=== PATIENT | male | born 1930 | race Caucasian/White ===

== ENCOUNTER 2018-08-18 09:29 | Observation (INO) ==
--- NOTE | 2018-08-18 10:15 | ERNOTE ---
Medical Problem HPI - Narrative Date of Service: 08/18/18 - General Chief Complaint: Nausea/Vomiting Time Seen by Provider: 08/18/18 10:14 Source: patient Exam Limitations: no limitations - Immun/Allergies/Home Medications Immunizations: IMMUNIZATION HX Immunizations Up to Date Yes Allergies/Adverse Reactions: Allergies No Known Allergies Allergy (Verified 08/18/18 10:08) Home Medications: HOME MEDICATIONS Acetaminophen [Tylenol] 500 mg PO QID PRN 03/18/14 [Last Taken Unknown] Amlodipine Besylate [Norvasc] 2.5 mg PO DAILY 03/18/14 [Last Taken Unknown] Amox Tr/Potassium Clavulanate [Augmentin 500-125 Tablet] 500 mg PO BID 03/18/14 [Last Taken Unknown] Aspirin [Aspirin Chewable] 81 mg PO DAILY 03/18/14 [Last Taken Unknown] Carvedilol [Coreg] 3.125 mg PO BID 03/18/14 [Last Taken Unknown] Cholecalciferol (Vitamin D3) [Vitamin D3] 2,000 unit PO DAILY 03/18/14 [Last Taken Unknown] [place]-3 Fatty Acids [[place]-3] 1,000 mg PO DAILY 03/18/14 [Last Taken Unknown] Pravastatin Sodium [Pravachol] 20 mg PO DAILY 03/18/14 [Last Taken Unknown] Ubidecarenone [Co Q-10] 200 mg PO DAILY 03/18/14 [Last Taken Unknown] - Pain Score Pain Score #1 Pain Score: 5 - History of Present History Narrative: The patient is a 87 year old male who presents for diffuse abdominal tenderness and diarrhea which has been ongoing for 2 weeks with worsening symptoms since Sunday. There are associated symptoms of nausea and fatigue. The patient reports generalized abdominal pain, 5/10. There are no alleviating factors. There are no aggravating factors. Previous treatments have included: none. The past medical history includes: HTN, HLD and prostate ca. The social history is negative. The patient has had no known ill contacts. Patient reports having 3 bowel movements daily, denies blood in stool. Review of Systems - Review of Systems Constitutional: Present: chills, fatigue. Absent: fever EYE: Present: no symptoms reported ENT: Present: no symptoms reported. Absent: ear pain, nasal drainage, sore throat Respiratory: Present: shortness of breath, cough Cardiology: Present: no symptoms reported. Absent: chest pain Gastrointestinal/Abdominal: Present: nausea, diarrhea, abdominal pain, eating less, drinking less. Absent: vomiting Genitourinary: Present: decreased urinary output. Absent: dysuria Musculoskeletal: Present: no symptoms reported Skin: Present: no symptoms reported. Absent: rash Neurological: Present: weakness All Other Systems: All systems neg except as marked Medical History (Updated 08/18/18 @ 16:36 by JUANITA Tijerina) Hx of hyperlipidemia Hx of primary hypertension Hx of prostatic malignancy Surgical History: Surgical History (Updated 08/18/18 @ 10:10 by Kassandra uQispe RN) Hx of carotid angioplasty Hx of heart artery stent Hx of hernia repair Family History: Family History (Updated 08/18/18 @ 10:10 by Kassandra Quispe RN) Other No pertinent family history Social History: Preferred Language British Do you have any jainism or No cultural preference? Smoking Status Never smoker Alcohol Use none No Social History Section defined Physical Exam - Physical Exam General Appearance: Present: wd/wn, alert, mild distress, other - sickly appeara nce Head Exam: Present: normal inspection Eye Exam: Normal inspection: bilateral Neck: Present: normal inspection Respiratory: Present: no respiratory distress, normal breath sounds, no accessory muscle use, lungs clear Cardiovascular/Chest: Present: regular rate, rhythm, systolic murmur Peripheral Pulses: N=norm/S=strong/W=weak/B=bound/A=absent: Radial (L): Normal Gastrointestinal/Abdominal: Present: nondistended, soft, no organomegaly, tenderness - diffuse, moderate, abnormal bowel sounds - hyperactive Extremity Exam: Present: no edema Neurological Exam: Present: alert, oriented, normal mood/affect, no motor/sensory deficits Skin Exam: Present: normal color, warm/dry Progress - Date and Time Seen: Date and Time: 08/18/18 17:16 Case was discussed with prior to admission. also notified of CDiff results when available. notified of EKG result, unsure if patient has had abnormal rhythm in the past but is not currently taking anti-arrhythmic but rate is controlled. - Results and Orders Patient's Lab Results:: I have reviewed the patient's lab results. - Vital Signs Patient's Vital Signs:: I have reviewed the patient's vital signs. Vital Signs: Vital Signs 08/18/18 10:05 Temperature 36.2 C Pulse Rate 51 L Respiratory Rate 15 O2 Sat by Pulse Oximetry 98 - EKG EKG #1 EKG: atrial flutter - rate 73 EKG read: Reviewed by me - X-Ray X-Ray #1 X-Ray: chest Interpretation: Reviewed by me X-ray Comments: IMPRESSION: 1. HYPERINFLATION. 2. NO ACUTE CARDIOPULMONARY PROCESS. Electronically signed by Ramiro Vallejo M.D.. X-Ray #2 X-Ray: abdomen Interpretation: Reviewed by me X-ray Comments: IMPRESSION: 1. NONSPECIFIC BOWEL GAS PATTERN Electronically signed by Ramiro Vallejo M.D.. - Progress/Reassessment Chief Complaint: Nausea/Vomiting Progress:: Improved Departure Clinical Impression: Infectious colitis, Dehydration, Bandemia, Clostridium difficile diarrhea Atrial flutter Qualifiers: Atrial flutter type: unspecified Qualified Code(s): I48.92 - Unspecified atrial flutter - Departure Disposition: Still a patient Condition: Good
[2018-08-18 10:56] LABS: Urine Color Amber
[2018-08-18 10:58] LABS: Urine Appearance Slightly Cloudy (CLEAR); Urine Bilirubin 1 mg/dl (NEGATIVE); Urine Blood 150 /ul (NEGATIVE); Urine Ketone Negative (NEGATIVE)
[2018-08-18 10:59] LABS: Urine Bacteria 1+; Urine Nitrite Negative (NEGATIVE); Urine Protein 100 mg/dL (NEGATIVE); Urine RBC 0-5 /hpf (0-5); Urine Urobilinogen Normal (NORMAL); Urine WBC 0-5 /hpf (0-5); Urine pH 5.5 pH (5.0-7.0)
[2018-08-18 11:00] LABS: Urine Coarse Granular Cast 0-5 /LPF; Urine Fine Granular Cast 0-5 /LPF; Urine Hyaline Cast 0-5 /LPF
[2018-08-18 11:03] LABS: Hematocrit 45.3 % (42.0-52.0); Hemoglobin 15.6 gm/dL (13.5-18.0); Mean Cell Volume 94.6 fl (78-100); Mean Corpuscular Hemoglobin 32.6 pg (27-31); Mean Corpuscular Hgb Conc 34.4 g/dl (32-36); Mean Platelet Volume 11.3 fl (8-11.3); Platelet Count 235 K/mm3 (150-450); Red Blood Count 4.79 M/mm3 (4.7-6.0); Red Cell Distribution Width 12.1 % (11.5-14.0); White Blood Count 21.9 K/mm3 (4.0-10.5)
[2018-08-18 11:05] LABS: Total Cells Counted 100
[2018-08-18] MEDS ORDERED: NORMAL SALINE 500 ML IV ONE (11:12)
[2018-08-18 11:15] LABS: Albumin * 3.3 gm/dl (3.4-5.0); Anion Gap 12.9 mmol/L (6.8-13.8); BUN/Creatinine Ratio 20.6 (9.0-21.6); Bilirubin, Total 0.7 mg/dL (0.0-1.1); Ca. Corrected For Albumin 9.1 mg/dL (8.4-10.2); Calcium * 8.9 mg/dL (7.9-10.9); Carbon Dioxide 28.1 mmol/L (24-32.6); Total Protein 7.4 gm/dL (6.2-8.2)
[2018-08-18 11:42] LABS: Band 30 % (0-2.0); Lymphocyte 6 % (20-51); Monocyte 6 % (0-9); Neutrophil 58 % (42-75); Neutrophil # 12.7 K/mm3 (1.3-6.0); Platelet Estimate Normal (NORMAL); RBC Morphology Normal (NORMAL)
[2018-08-18] MEDS ORDERED: DIATRIZOATE MEGLUMINE, SODIUM 30 ML BTL PO ONE (12:01)
[2018-08-18] MEDS ORDERED: ONDANSETRON HCL/PF 2 MG/ML VIAL IV ONE (12:05)
[2018-08-18] MEDS ORDERED: PIPERACILLIN SODIUM/TAZOBACTAM 3.375 GM in DEXTROSE 5 % IN WATER 100 ML IV ONE ×2 (15:56)
[2018-08-18] MEDS ORDERED: metroNIDAZOLE/SODIUM CHLORIDE 500 MG/100 ML BAG IV SCH ×2 (16:00→19:00)
[2018-08-18] MEDS ORDERED: ACETAMINOPHEN 325 MG TABLET PO PRN (18:44)
[2018-08-18] MEDS: NORMAL SALINE 1,000 ML IV PRN (19:25)
[2018-08-18] MEDS: LACTOBACILLUS ACIDOPHILUS 1 EACH CAPSULE PO SCH (19:26)
[2018-08-18] MEDS ORDERED: SIMVASTATIN 10 MG TABLET PO SCH (19:30)
--- NOTE | 2018-08-18 19:48 | HP ---
Chief Complaint - Chief Complaint Date of Service: 08/18/18 Time of Service: 19:35 Chief Complaint: I have had diarrhea and weakness for over 3 days History of Present Illness: 87-year-old male with past medical history of hyperlipidemia, hypertension, prostate cancer, was seen in our ER due to persistent nonbloody diarrhea accompanied by generalized weakness for over 3 days. Patient was recently treated for suspected pneumonia with p.o. antibiotics by his PCP, specifically Augmentin. He reports that his cough improved and fevers resolved, however he started having abdominal discomfort accompanied by multiple episodes of nonbloody watery diarrhea and loose stools. Patient reports at least 3 episodes of diarrhea per day since the illness started. Labs upon admission demonstrated WBCs of 21 and bands count of 30. Patient's GFR is also found to be below normal but his baseline GFR is unknown. C. difficile study came back positive for infection with C. difficile, therefore patient was given a a dose of metronidazole in the ER and will be treated with subsequent doses of p.o. metronidazole to treat his C. difficile infection. Augmentin has been continued. Medical History (Updated 08/18/18 @ 17:16 by JUANITA Tijerina) Hx of hyperlipidemia Hx of primary hypertension Hx of prostatic malignancy Surgical History: Surgical History (Updated 08/18/18 @ 10:10 by Kassandra Quispe RN) Hx of carotid angioplasty Hx of heart artery stent Hx of hernia repair Family History: Family History (Updated 08/18/18 @ 10:10 by Kassandra Quispe RN) Other No pertinent family history Social History: Patient Lives/Resources with son Utilized Preferred Language Bengali Do you have any amish or Yes: [facility] cultural preference? Smoking Status Never smoker Have you smoked in the past 12 No months Alcohol Use none No Social History Section defined Peds Patient Hx - Developmental: No Pertinent Hx Peds Patient Hx - Medical: No Pertinent Hx Peds Patient Hx - Cardiac/Respiratory: No Pertinent Hx Peds Patient Hx - Surgical: No Surgical History Patient History - Cancer: No Hx of Cancer Review Of Systems (GEN) - Review of Systems Generalized/Overall Review: Present: Weakness, Chills, Fever EENTM: Present: No Symptoms Reported Respiratory: Present: Cough Cardiac: Present: No Symptoms Reported Abdominal: Present: Nausea, Abdominal Pain, Diarrhea Genitourinary: Present: No Symptoms Reported Musculoskeletal: Present: No Symptoms Reported Neurological: Present: No Symptoms Reported Skin: Present: No Symptoms Reported Endocrine: Present: No Symptoms Reported Immunizations: IMMUNIZATION HX Immunizations Up to Date Yes Allergies/Adverse Reactions: Allergies Allergy/AdvReac Type Severity Reaction Status Date / Time No Known Allergies Allergy Verified 08/18/18 17:18 Home Medications: HOME MEDICATIONS Acetaminophen [Tylenol] 500 mg PO QID PRN 03/18/14 [Last Taken Unknown] Amlodipine Besylate [Norvasc] 2.5 mg PO DAILY 03/18/14 [Last Taken Unknown] Amox Tr/Potassium Clavulanate [Augmentin 500-125 Tablet] 500 mg PO BID 03/18/14 [Last Taken Unknown] Aspirin [Aspirin Chewable] 81 mg PO DAILY 03/18/14 [Last Taken Unknown] Carvedilol [Coreg] 3.125 mg PO BID 03/18/14 [Last Taken Unknown] Cholecalciferol (Vitamin D3) [Vitamin D3] 2,000 unit PO DAILY 03/18/14 [Last Taken Unknown] [place]-3 Fatty Acids [[place]-3] 1,000 mg PO DAILY 03/18/14 [Last Taken Unknown] Pravastatin Sodium [Pravachol] 20 mg PO DAILY 03/18/14 [Last Taken Unknown] Ubidecarenone [Co Q-10] 200 mg PO DAILY 03/18/14 [Last Taken Unknown] Exam - Exam Vital Signs: Vital Signs - Last Taken Temp 36.9 C 08/18/18 17:20 Pulse 73 08/18/18 17:20 Resp 14 08/18/18 17:20 BP 126/64 08/18/18 17:20 Pulse Ox 99 08/18/18 17:20 Constitutional: Present: Alert, Oriented x3, Cooperative, Well developed, Well nourished, No distress ENT Exam: Present: normal ENT inspection, hearing grossly normal, pharynx normal, TMs normal Eye Exam: bilateral eye: normal inspection, PERRL, EOMI Neck: Present: non-tender, full range of motion, supple, normal inspection, trachea midline Back Exam: Present: normal inspection, no CVA tenderness, no vertebral tenderness Breasts: Present: Exam deferred Respiratory: Present: chest non-tender Cardiovascular/Chest: Present: normal peripheral pulses, regular rate, rhythm, no chest tenderness, no edema, no gallop, no JVD, no murmur, no rub Peripheral Pulses: carotid (R): 3+, carotid (L): 3+, femoral (R): 3+, femoral (L): 3+, dorsalis-pedis (R): 3+, dorsalis-pedis (L): 3+ Abdomen: Present: Normal bowel sounds, soft, nondistended, no rebound tenderness, no hepatospenomegaly, no masses, tender - Mild tenderness in lower quadrants /Rectal: Present: Exam deferred Extremity: Present: normal range of motion, non-tender, normal inspection, no pedal edema, no calf tenderness, normal capillary refill Skin Exam: Present: normal color, warm/dry, no cyanosis Lymphatic: Present: no adenopathy Neurologic: Present: quill machine tender II-XII nml as tested, normal cerebellar test, no motor/sensory deficits, alert, normal mood/affect, oriented x 3 Appearance: Present: appropriate appearance, appropriate insight, neat, no memory impairment Eye contact: Present: cooperative, good eye contact, normal speech Thoughts: Present: normal thought pattern, no apparent hallucination Diagnostic Studies: Abnormal Lab Results 08/18/18 08/18/18 08/18/18 Range/Units 10:37 10:55 10:55 WBC 21.9 H (4.0-10.5) K/mm3 MCH 32.6 H (27-31) pg Band Neuts % (Manual) 30 H (0-2.0) % Lymphocytes % (Manual) 6 L (20-51) % Neutrophils # (Manual) 12.7 H (1.3-6.0) K/mm3 Lymphocytes # (Manual) 1.3 L (1.5-3.5) k/mm3 Monocytes # (Manual) 1.3 H (0.0-1.0) k/mm3 Chloride 96 L (97-106) mmol/L BUN 34 H (6-23) mg/dL Creatinine 1.65 H (0.4-1.4) mg/dL Est GFR (Non-Af Amer) 42 L D (60-130) mL/min Albumin 3.3 L (3.4-5.0) gm/dl Urine Protein 100 H (NEGATIVE) mg/dL Urine Blood 150 H (NEGATIVE) /ul Urine Bilirubin 1 H (NEGATIVE) mg/dl Urine Ictotest Positive H (NEGATIVE) Prot Sulfosalicylic Acd 4+ H (0) mg/dL Urine Bacteria 1+ H (NONE) Hyaline Casts 0-5 H (NONE) /LPF Fine Granular Casts 0-5 H (NONE) /LPF Coarse Granular Casts 0-5 H (NONE) /LPF Stl C.difficile Tox A&B (Negative) 08/18/18 Range/Units 15:10 WBC (4.0-10.5) K/mm3 MCH (27-31) pg Band Neuts % (Manual) (0-2.0) % Lymphocytes % (Manual) (20-51) % Neutrophils # (Manual) (1.3-6.0) K/mm3 Lymphocytes # (Manual) (1.5-3.5) k/mm3 Monocytes # (Manual) (0.0-1.0) k/mm3 Chloride (97-106) mmol/L BUN (6-23) mg/dL Creatinine (0.4-1.4) mg/dL Est GFR (Non-Af Amer) (60-130) mL/min Albumin (3.4-5.0) gm/dl Urine Protein (NEGATIVE) mg/dL Urine Blood (NEGATIVE) /ul Urine Bilirubin (NEGATIVE) mg/dl Urine Ictotest (NEGATIVE) Prot Sulfosalicylic Acd (0) mg/dL Urine Bacteria (NONE) Hyaline Casts (NONE) /LPF Fine Granular Casts (NONE) /LPF Coarse Granular Casts (NONE) /LPF Stl C.difficile Tox A&B Positive H (Negative) Laboratory Results WBC 21.9 K/mm3 (4.0-10.5) H 08/18/18 10:55 RBC 4.79 M/mm3 (4.7-6.0) 08/18/18 10:55 Hgb 15.6 gm/dL (13.5-18.0) 08/18/18 10:55 Hct 45.3 % (42.0-52.0) 08/18/18 10:55 MCV 94.6 fl (78-100) 08/18/18 10:55 MCH 32.6 pg (27-31) H 08/18/18 10:55 MCHC 34.4 g/dl (32-36) 08/18/18 10:55 RDW 12.1 % (11.5-14.0) 08/18/18 10:55 Plt Count 235 K/mm3 (150-450) 08/18/18 10:55 MPV 11.3 fl (8-11.3) 08/18/18 10:55 58 % (42-75) 08/18/18 10:55 Band Neuts % (Manual) 30 % (0-2.0) H 08/18/18 10:55 6 % (20-51) L 08/18/18 10:55 6 % (0-9) 08/18/18 10:55 12.7 K/mm3 (1.3-6.0) H 08/18/18 10:55 1.3 k/mm3 (1.5-3.5) L 08/18/18 10:55 1.3 k/mm3 (0.0-1.0) H 08/18/18 10:55 Normal (NORMAL) 08/18/18 10:55 RBC Morphology Normal (NORMAL) 08/18/18 10:55 Sodium 133 mmol/L (132-142) 08/18/18 10:55 133 mmol/L (130-142) 08/18/18 10:55 Potassium 4.0 mmol/L (3.4-4.6) 08/18/18 10:55 Chloride 96 mmol/L (97-106) L 08/18/18 10:55 Carbon Dioxide 28.1 mmol/L (24-32.6) 08/18/18 10:55 12.9 mmol/L (6.8-13.8) 08/18/18 10:55 BUN 34 mg/dL (6-23) H 08/18/18 10:55 1.65 mg/dL (0.4-1.4) H 08/18/18 10:55 Est GFR (Non-Af Amer) 42 mL/min (60-130) L D 08/18/18 10:55 20.6 (9.0-21.6) 08/18/18 10:55 106 mg/dL (70-110) 08/18/18 10:55 1.6 mmol/L (0.4-2.0) 08/18/18 10:55 Calcium 8.9 mg/dL (7.9-10.9) 08/18/18 10:55 Calcium Adj for Albumin 9.1 mg/dL (8.4-10.2) 08/18/18 10:55 Magnesium 2.2 mg/dL (1.2-2.8) 08/18/18 10:55 0.7 mg/dL (0.0-1.1) 08/18/18 10:55 AST 27 U/L (0-48) 08/18/18 10:55 ALT 26 U/L (19-67) 08/18/18 10:55 67 U/L (50-170) 08/18/18 10:55 7.4 gm/dL (6.2-8.2) 08/18/18 10:55 3.3 gm/dl (3.4-5.0) L 08/18/18 10:55 Amylase 53 U/L (25-115) 08/18/18 10:55 173 U/L (73-393) 08/18/18 10:55 Magy 08/18/18 10:37 Slightly cloudy (CLEAR) 08/18/18 10:37 5.5 pH (5.0-7.0) 08/18/18 10:37 Ur Specific [place] 1.030 SP.GR. (1.005-1.030) 08/18/18 10:37 100 mg/dL (NEGATIVE) H 08/18/18 10:37 Negative mg/dL (NEGATIVE) 08/18/18 10:37 Negative mg/dL (NEGATIVE) 08/18/18 10:37 150 /ul (NEGATIVE) H 08/18/18 10:37 Negative (NEGATIVE) 08/18/18 10:37 1 mg/dl (NEGATIVE) H 08/18/18 10:37 Positive (NEGATIVE) H 08/18/18 10:37 Prot Sulfosalicylic Acd 4+ mg/dL (0) H 08/18/18 10:37 Normal EU/dl (NORMAL) 08/18/18 10:37 Ur Leukocyte Esterase Negative /ul (NEGATIVE) 08/18/18 10:37 0-5 /hpf (0-5) 08/18/18 10:37 0-5 /hpf (0-5) 08/18/18 10:37 Ur Epithelial Cells None seen /hpf (0-5) 08/18/18 10:37 1+ (NONE) H 08/18/18 10:37 Hyaline Casts 0-5 /LPF (NONE) H 08/18/18 10:37 Fine Granular Casts 0-5 /LPF (NONE) H 08/18/18 10:37 Coarse Granular Casts 0-5 /LPF (NONE) H 08/18/18 10:37 No culture indicated 08/18/18 10:37 Stl C.difficile Tox A&B Positive (Negative) H 08/18/18 15:10 Assessment/Plan - Narrative Narrative: Patient was evaluated and medical chart was reviewed and decision to admit with diagnosis of C. difficile colitis, moderate dehydration, intractable diarrhea, was taken. Patient will be treated with oral antibiotics specifically metronidazole to treat the infection with C. difficile and he will also be treated with IV hydration to treat his dehydration. Currently patient's only complaint is mild tenderness upon palpation of his abdomen specifically in the lower quadrants but he denies any nausea and has not had diarrhea since arriving on the floor. Augmentin was discontinued since it is a suspected culprit of the C. difficile infection. Patient was found to have a new onset atrial flutter on EKG while in the ER which was confirmed with a second EKG when he arrived on the floor however he denies any chest pain, troponins are negative, and his heart rate is adequately controlled. He denies history of cardiac arrhythmia or ever being told that he had an abnormal heart rhythm, however patient did report having 2 stents inserted due to coronary artery disease several years ago. We will continue to monitor him with telemetry and treat accordingly. - Assessment/Plan (1) Atrial flutter Problem: Acute Qualifiers: Atrial flutter type: unspecified Qualified Code(s): I48.92 - Unspecified atrial flutter (2) Clostridium difficile diarrhea Problem: Acute (3) Colitis due to Clostridium difficile Problem: Acute (4) Moderate dehydration Problem: Acute (5) Bandemia Problem: Acute
[2018-08-18] MEDS ORDERED: SIMVASTATIN 20 MG TABLET ONE (20:42)
[2018-08-18] MEDS: CARVEDILOL 3.125 MG TABLET PO SCH (20:51)
[2018-08-18] MEDS: FAMOTIDINE 20 MG TABLET PO SCH (20:52)
[2018-08-18] MEDS: ENOXAPARIN SODIUM 30 MG/0.3 ML SYRG SC SCH (20:53)
[2018-08-19] MEDS: metroNIDAZOLE 500 MG TABLET PO SCH ×2 (00:34→08:42)
[2018-08-19] MEDS: NORMAL SALINE 1,000 ML IV PRN ×3 (03:28→19:14)
[2018-08-19] MEDS: Co Q-10 200 MG PO SCH (08:42)
[2018-08-19] MEDS: amLODIPine BESYLATE 5 MG TABLET PO SCH (08:42)
[2018-08-19] MEDS: CHOLECALCIFEROL 1,000 UNIT CAPSULE PO SCH (08:42)
[2018-08-19] MEDS: LACTOBACILLUS ACIDOPHILUS 1 EACH CAPSULE PO SCH ×3 (08:42→16:33)
[2018-08-19] MEDS: FAMOTIDINE 20 MG TABLET PO SCH ×2 (08:43→20:27)
[2018-08-19] MEDS: ASPIRIN 81 MG TAB.CHEW PO SCH (08:43)
[2018-08-19] MEDS: CARVEDILOL 3.125 MG TABLET PO SCH ×2 (08:43→16:33)
[2018-08-19] MEDS: OMEGA-3 FATTY ACIDS 1 CAP CAPSULE PO SCH (08:43)
[2018-08-19 10:49] LABS: Hematocrit 40.9 % (42.0-52.0); Hemoglobin 13.9 gm/dL (13.5-18.0); Mean Cell Volume 96.5 fl (78-100); Mean Corpuscular Hemoglobin 32.8 pg (27-31); Mean Platelet Volume 11.6 fl (8-11.3); Neutrophil # 16.2 K/mm3 (1.3-6.0); Neutrophil % 87.4 % (42-75.0); Platelet Count 226 K/mm3 (150-450); Red Blood Count 4.24 M/mm3 (4.7-6.0); Red Cell Distribution Width 12.5 % (11.5-14.0); White Blood Count 18.6 K/mm3 (4.0-10.5)
[2018-08-19 10:58] LABS: Albumin * 2.6 gm/dl (3.4-5.0); Bilirubin, Total 0.4 mg/dL (0.0-1.1); Calcium * 8.2 mg/dL (7.9-10.9); Carbon Dioxide 26.5 mmol/L (24-32.6); Potassium 3.5 mmol/L (3.4-4.6)
[2018-08-19] MEDS: VANCOMYCIN HCL 50 MG/ML BTL PO SCH ×3 (11:19→23:17)
--- NOTE | 2018-08-19 11:25 | PN ---
Subjective - Date and Time Seen Date: 08/19/18 Time: 11:20 Subjective Narrative: I have not had diarrhea since yesterday evening but I am shaft tender in the right lower quadrant Objective Objective Narrative: 88-year-old male admitted for colitis due to Clostridium difficile was evaluated at bedside and was found to be afebrile and in no acute distress. Patient reports feeling better compared to when he got here and denies recurrence of diarrhea since the last episode that occurred yesterday evening. However, during bedside evaluation he was still found to have mild tenderness on palpation of the right lower quadrant. Patient is being treated with p.o. antibiotics specifically p.o. Vanco for his C. difficile infection. This morning's labs demonstrate an improvement in his leukocytosis and renal functi on. We will reevaluate him tomorrow morning and repeat labs for a reevaluation of his condition. - Review of Systems Generalized/Overall Review: Reports: No Symptoms Reported EENTM: Reports: No Symptoms Reported Respiratory: Reports: No Symptoms Reported Cardiac: Reports: No Symptoms Reported Abdominal: Reports: No Symptoms Reported Genitourinary Symptoms: Reports: No Symptoms Reported Musculoskeletal Complaints: Reports: No Symptoms Reported Neurological: Reports: No Symptoms Reported Skin: Reports: No Symptoms Reported Endocrine: Reports: No Symptoms Reported - Vitals Vitals: Last Vital Signs Temp 36.7 C 08/19/18 10:34 Pulse 64 08/19/18 10:34 Resp 20 08/19/18 10:34 BP 128/95 H 08/19/18 10:34 Pulse Ox 99 08/19/18 10:34 - Abnormal Lab Findings Abnormal Lab Findings: Abnormal Lab Results 08/18/18 08/18/18 08/19/18 Range/Units 10:55 15:10 10:39 WBC 18.6 H (4.0-10.5) K/mm3 RBC 4.24 L (4.7-6.0) M/mm3 Hct 40.9 L (42.0-52.0) % MCH 32.8 H (27-31) pg MPV 11.6 H (8-11.3) fl Immature Gran % (Auto) 1.00 H (0.001-0.429) % Immature Gran # (Auto) 0.19 H (0.000-0.0310) K/mm3 Neutrophils % 87.4 H (42-75.0) % Band Neuts % (Manual) 30 H (0-2.0) % Lymphocytes % 4.7 L (20-51) % Lymphocytes % (Manual) 6 L (20-51) % Neutrophils # 16.2 H (1.3-6.0) K/mm3 Neutrophils # (Manual) 12.7 H (1.3-6.0) K/mm3 Lymphocytes # 0.88 L (1.5-3.5) k/mm3 Lymphocytes # (Manual) 1.3 L (1.5-3.5) k/mm3 Monocytes # 1.2 H (0.0-1.0) k/mm3 Monocytes # (Manual) 1.3 H (0.0-1.0) k/mm3 BUN (6-23) mg/dL Est GFR (Non-Af Amer) (60-130) mL/min BUN/Creatinine Ratio (9.0-21.6) Total Protein (6.2-8.2) gm/dL Albumin (3.4-5.0) gm/dl Stl C.difficile Tox A&B Positive H (Negative) 08/19/18 Range/Units 10:39 WBC (4.0-10.5) K/mm3 RBC (4.7-6.0) M/mm3 Hct (42.0-52.0) % MCH (27-31) pg MPV (8-11.3) fl Immature Gran % (Auto) (0.001-0.429) % Immature Gran # (Auto) (0.000-0.0310) K/mm3 Neutrophils % (42-75.0) % Band Neuts % (Manual) (0-2.0) % Lymphocytes % (20-51) % Lymphocytes % (Manual) (20-51) % Neutrophils # (1.3-6.0) K/mm3 Neutrophils # (Manual) (1.3-6.0) K/mm3 Lymphocytes # (1.5-3.5) k/mm3 Lymphocytes # (Manual) (1.5-3.5) k/mm3 Monocytes # (0.0-1.0) k/mm3 Monocytes # (Manual) (0.0-1.0) k/mm3 BUN 28 H (6-23) mg/dL Est GFR (Non-Af Amer) 57 L D (60-130) mL/min BUN/Creatinine Ratio 22.0 H (9.0-21.6) Total Protein 6.0 L (6.2-8.2) gm/dL Albumin 2.6 L (3.4-5.0) gm/dl Stl C.difficile Tox A&B (Negative) - Exam Constitutional: Present: Alert, Oriented x3, Cooperative, Well developed, Well nourished, No distress ENT Exam: Present: normal ENT inspection, hearing grossly normal, pharynx normal, TMs normal Neck: Present: non-tender, full range of motion, normal inspection, trachea midline Breasts: Present: Exam deferred Respiratory: Present: chest non-tender, lungs clear, normal breath sounds, no respiratory distress, no accessory muscle use Cardiovascular/Chest: Present: normal peripheral pulses, regular rate, rhythm, no chest tenderness, no edema, no gallop, no JVD, no murmur, no rub Abdomen: Present: Normal bowel sounds, soft, nondistended, no hepatospenomegaly, no masses, tender - Right lower quadrant tenderness /Rectal: Present: Exam deferred Extremity: Present: normal range of motion, non-tender, normal inspection, no pedal edema, no calf tenderness, normal capillary refill Skin Exam: Present: normal color, warm/dry, no cyanosis Lymphatic: Present: no adenopathy Neurologic: Present: christmas tree grower II-XII nml as tested, normal cerebellar test, no motor/sensory deficits, alert, normal mood/affect, oriented x 3 Appearance: Present: appropriate appearance Eye contact: Present: cooperative, good eye contact, normal speech Thoughts: Present: normal thought pattern, no apparent hallucination Assessment/Plan Plan Narrative: We will continue to treat patient with p.o. Vanco for C. difficile infection and follow-up with labs in the morning for evaluation. Patient's atrial flutter has resolved confirmed with EKG, he maintains stable vitals. - Problems/Diagnosis (1) Atrial flutter Problem: Resolved Qualifiers: Atrial flutter type: unspecified Qualified Code(s): I48.92 - Unspecified atrial flutter (2) Clostridium difficile diarrhea Problem: Acute (3) Colitis due to Clostridium difficile Problem: Acute (4) Moderate dehydration Problem: Acute (5) Bandemia Problem: Acute
[2018-08-19] MEDS: ENOXAPARIN SODIUM 30 MG/0.3 ML SYRG SC SCH (20:26)
[2018-08-19] MEDS ORDERED: SIMVASTATIN 10 MG TABLET PO SCH (21:00)
[2018-08-20] MEDS: NORMAL SALINE 1,000 ML IV PRN (03:20)
[2018-08-20] MEDS: VANCOMYCIN HCL 50 MG/ML BTL PO SCH ×2 (05:33→09:49)
[2018-08-20 05:36] LABS: Hematocrit 34.8 % (42.0-52.0); Hemoglobin 11.9 gm/dL (13.5-18.0); Mean Cell Volume 95.6 fl (78-100); Mean Corpuscular Hemoglobin 32.7 pg (27-31); Mean Corpuscular Hgb Conc 34.2 g/dl (32-36); Mean Platelet Volume 11.7 fl (8-11.3); Neutrophil # 9.8 K/mm3 (1.3-6.0); Neutrophil % 80.2 % (42-75.0); Platelet Count 203 K/mm3 (150-450); Red Blood Count 3.64 M/mm3 (4.7-6.0); Red Cell Distribution Width 12.6 % (11.5-14.0); White Blood Count 12.2 K/mm3 (4.0-10.5)
[2018-08-20 05:51] LABS: Albumin * 2.4 gm/dl (3.4-5.0); Anion Gap 11.1 mmol/L (6.8-13.8); Bilirubin, Total 0.3 mg/dL (0.0-1.1); Ca. Corrected For Albumin 8.8 mg/dL (8.4-10.2); Calcium * 7.8 mg/dL (7.9-10.9); Carbon Dioxide 24.3 mmol/L (24-32.6); Potassium 3.4 mmol/L (3.4-4.6); Total Protein 5.1 gm/dL (6.2-8.2)
[2018-08-20 05:57] LABS: BUN/Creatinine Ratio 17.1 (9.0-21.6)
[2018-08-20] MEDS: ASPIRIN 81 MG TAB.CHEW PO SCH (09:27)
[2018-08-20] MEDS: FAMOTIDINE 20 MG TABLET PO SCH (09:27)
[2018-08-20] MEDS: amLODIPine BESYLATE 5 MG TABLET PO SCH (09:27)
[2018-08-20] MEDS: LACTOBACILLUS ACIDOPHILUS 1 EACH CAPSULE PO SCH (09:27)
[2018-08-20] MEDS: CARVEDILOL 3.125 MG TABLET PO SCH (09:28)
[2018-08-20] MEDS: Co Q-10 200 MG PO SCH (09:28)
[2018-08-20] MEDS: CHOLECALCIFEROL 1,000 UNIT CAPSULE PO SCH (09:28)
[2018-08-20] MEDS: OMEGA-3 FATTY ACIDS 1 CAP CAPSULE PO SCH ×2 (09:28→09:33)
--- NOTE | 2018-08-20 09:57 | DS ---
(1) Atrial flutter Problem: Resolved Qualifiers: Atrial flutter type: unspecified Qualified Code(s): I48.92 - Unspecified atrial flutter (2) Clostridium difficile diarrhea Problem: Resolved (3) Colitis due to Clostridium difficile Problem: Acute (4) Moderate dehydration Problem: Resolved (5) Bandemia Problem: Resolved Description of Stay: 88-year-old male admitted for C. difficile colitis, moderate dehydration, intractable diarrhea, no onset atrial flutter, was evaluated at bed side and was found to be afebrile and in no acute distress. Patient denied recurrence of diarrhea and denies any abdominal pain. He has been treated with oral antibiotics for his C. difficile infection and responded favorably. Patient's atrial flutter has resolved and vital signs have remained stable. Therefore given these findings decision to dis-charge patient home with instructions to follow-up with his PCP was taken. He will be provided with a prescription for 7 additional days of oral vancomycin to treat his C. difficile colitis. Procedures Performed: none Results and Findings: Pending Mircobiology Results 08/18/18 15:02 Stool Stool Culture - Preliminary No Pathogens Isolated Lab Pending Results 08/18/18 10:37: Urine Color Magy, Urine Appearance Slightly cloudy, Urine pH 5.5, Ur Specific Morris 1.030, Urine Protein 100 H, Urine Glucose (UA) Negative, Urine Ketones Negative, Urine Blood 150 H, Urine Nitrate Negative, Urine Bilirubin 1 H, Urine Ictotest Positive H, Prot Sulfosalicylic Acd 4+ H, Urine Urobilinogen Normal, Ur Leukocyte Esterase Negative, Urine RBC 0-5, Urine WBC 0-5, Ur Epithelial Cells None seen, Urine Bacteria 1+ H, Hyaline Casts 0-5 H, Fine Granular Casts 0-5 H, Coarse Granular Casts 0-5 H, Urine Culture Comments No culture indicated 08/18/18 10:55: WBC 21.9 H, RBC 4.79, Hgb 15.6, Hct 45.3, MCV 94.6, MCH 32.6 H, MCHC 34.4, RDW 12.1, Plt Count 235, MPV 11.3, Neutrophils % (Manual) 58, Band Neuts % (Manual) 30 H, Lymphocytes % (Manual) 6 L, Monocytes % (Manual) 6, Neutrophils # (Manual) 12.7 H, Lymphocytes # (Manual) 1.3 L, Monocytes # (Manual) 1.3 H, Platelet Estimate Normal, RBC Morphology Normal 08/18/18 10:55: Sodium 133, Plasma Sodium 133, Potassium 4.0, Chloride 96 L, Carbon Dioxide 28.1, Anion Gap 12.9, BUN 34 H, Creatinine 1.65 H, Est GFR (Non- Af Amer) 42 L D, BUN/Creatinine Ratio 20.6, Random Glucose 106, Calcium 8.9, Calcium Adj for Albumin 9.1, Total Bilirubin 0.7, AST 27, ALT 26, Alkaline Phosphatase 67, Total Protein 7.4, Albumin 3.3 L, Amylase 53, Lipase 173 08/18/18 10:55: Lactic Acid, Venous 1.6 08/18/18 10:55: Magnesium 2.2 08/18/18 15:10: Stl C.difficile Tox A&B Positive H 08/19/18 10:39: WBC 18.6 H, RBC 4.24 L, Hgb 13.9, Hct 40.9 L, MCV 96.5, MCH 32.8 H, MCHC 34.0, RDW 12.5, Plt Count 226, MPV 11.6 H, Immature Gran % (Auto) 1.00 H, Immature Gran # (Auto) 0.19 H, Neutrophils % 87.4 H, Lymphocytes % 4.7 L, Monocytes % 6.4, Eosinophils % 0.3, Basophils % 0.2, Nucleated RBC % 0.0, Neutrophils # 16.2 H, Lymphocytes # 0.88 L, Monocytes # 1.2 H, Eosinophils # 0.1, Absolute Basophils 0.0 08/19/18 10:39: Sodium 137, Plasma Sodium 137, Potassium 3.5, Chloride 103, Carbon Dioxide 26.5, Anion Gap 11.0, BUN 28 H, Creatinine 1.27, Est GFR (Non-Af Amer) 57 L D, BUN/Creatinine Ratio 22.0 H, Random Glucose 88, Calcium 8.2, Calcium Adj for Albumin 9.0, Total Bilirubin 0.4, AST 19, ALT 28, Alkaline Phosphatase 53, Total Protein 6.0 L, Albumin 2.6 L 08/20/18 05:32: WBC 12.2 H D, RBC 3.64 L, Hgb 11.9 L, Hct 34.8 L, MCV 95.6, MCH 32.7 H, MCHC 34.2, RDW 12.6, Plt Count 203, MPV 11.7 H, Immature Gran % (Auto) 1.00 H, Immature Gran # (Auto) 0.12 H, Neutrophils % 80.2 H, Lymphocytes % 10.4 L, Monocytes % 7.3, Eosinophils % 0.8, Basophils % 0.3, Nucleated RBC % 0.0, Neutrophils # 9.8 H, Lymphocytes # 1.26 L, Monocytes # 0.9, Eosinophils # 0.1, Absolute Basophils 0.0 08/20/18 05:32: Sodium 140, Plasma Sodium 140, Potassium 3.4, Chloride 108 H, Carbon Dioxide 24.3, Anion Gap 11.1, BUN 18, Creatinine 1.05, Est GFR (Non-Af Amer) 71 D, BUN/Creatinine Ratio 17.1, Random Glucose 90, Calcium 7.8 L, Calcium Adj for Albumin 8.8, Total Bilirubin 0.3, AST 18, ALT 24, Alkaline Phosphatase 47 L, Total Protein 5.1 L, Albumin 2.4 L Discharge Location: Home Disposition: Home self-care Condition: Good Face to Face Encounter completed per [facility] Guidelines: No Discharge Activity: Activity as tolerated Discharge Diet: General/regular food Problem Oriented Discharge Instructions to Patient/Family: Clostridium Difficile FAQs - WILSON, Clostridium Difficile Infection, Dehydration, Elderly, [id number] Additional Patient Instructions (free text): -Follow up with Dr. Morley 08/27 at 1:30pm. Prescriptions (Any new or edited meds): Lactobacillus Acidophilus [Bacid] 1 ea PO TID 10 Days #30 cap Vancomycin HCl [Vancomycin] 125 mg PO Q6H 7 Days #28 btl Complete Home Medications List: Complete Home Medication List: Acetaminophen [Tylenol] 500 mg PO QID PRN 03/18/14 Amlodipine Besylate [Norvasc] 2.5 mg PO DAILY 03/18/14 Aspirin [Aspirin Chewable] 81 mg PO DAILY 03/18/14 Carvedilol [Coreg] 3.125 mg PO BID 03/18/14 Cholecalciferol (Vitamin D3) [Vitamin D3] 2,000 unit PO DAILY 03/18/14 [place]-3 Fatty Acids [[place]-3] 1,000 mg PO DAILY 03/18/14 Pravastatin Sodium [Pravachol] 20 mg PO DAILY 03/18/14 Ubidecarenone [Co Q-10] 200 mg PO DAILY 03/18/14 Lactobacillus Acidophilus [Bacid] 1 ea PO TID 10 Days #30 cap 08/20/18 Vancomycin HCl [Vancomycin] 125 mg PO Q6H 7 Days #28 btl 08/20/18
[2018-08-20 10:57] VITALS: BP 130/63
== END 2018-08-20 12:01 | disposition home or self-care (01) ==
LOC: ER 09:29 → MS 09:29
PROVIDERS: ADMIT Family Medicine; ATTEND Family Medicine
DX: E86.0 Dehydration; D72.825 Bandemia; A04.72 Enterocolitis due to Clostridium difficile, not specified as recurrent; I48.92 Unspecified atrial flutter; A04.8 Other specified bacterial intestinal infections
CPT/HCPCS: 36415; 71020; 71046; 74019; 74020; 74177; 80053; 81001; 82150; 83605; 83690; 83735; 85025; 87045; 87046; 87493; 93005; 96361; 96365; 96367; 96375; 99285; G0378; J2405; Q9967